=== PATIENT | female | born 1960 | race Caucasian/White ===

== ENCOUNTER → 2019-04-05 | Outpatient (CLI) | payer BC ==
--- NOTE | 2019-04-05 16:53 | PCVCIMAG ---
APPROVED REPORT Study performed: 04/05/2019 15:00:37 Exam: Stress Echocardiogram Indication: elevated coronary calcium score, pre-chemo, tobacco use Patient Location: Echo lab Stress Nurse: Dhara Russ RN Status: routine Ht: 5 ft 4 in HR: 85 bpm BP: 132/80 mmHg Rhythm: NSR Procedure The patient underwent an Exercise Stress Test using the Darnell Protocol. Blood pressure, heart rate, and EKG were monitored. An Echocardiogram was performed by audio visual technician in four stages in quad fashion. At peak stress, four selected images were obtained and placed side by side with resting images for comparison. Stress Test Details Stress Test: Exercise stress testing was performed using a Darnell protocol. HR Resting HR: 85 bpmMax Heart Rate (APMHR): 161 bpm Max HR Achieved: 151 bpmTarget HR (85% APMHR): 136 bpm % of APMHR: 93 Recovery HR: 92 bpm HR response to stress: Normal HR response to stress BP Resting BP: 132/80 mmHg Max BP: 156/76 mmHg Recovery BP: 124/76 mmHg BP response to stress: Normal blood pressure response to stress. ECG Resting ECG: Sinus Rhythm Stress ECG: Sinus Rhythm ST Change: Normal Maximum ST Deviation: 0 mm Arrhythmia: None Recovery ECG: Sinus Rhythm Recovery ST Change: Normal Recovery ST Deviation: 0 mm Recovery Arrhythmia: None Clinical Reason for Termination: Maximal effort, Dyspnea Stress Symptoms: Dyspnea Exercise duration: 6 min 41 sec Highest Stage Achieved: Stage 3: 3.4 mph at 14% grade. Exercise capacity: 9 METs Overall Exercise Capacity for Age: Average Scale: Sedentary Angina Score: None Stress ECG Conclusion Clinical: Non-ischemic ECG: Non-ischemic Anaya Treadmill Score is 6.0 which is Low risk. Pre-Stress Echo The resting Echocardiogram showed normal left ventricular contractility with an estimated Ejection Fraction of about 50-55%. Normal wall motion in all segments on baseline images. Post-Stress Echo The stress Echocardiogram showed abnormal left ventricular contractility with an estimated Ejection Fraction of about 45-50%. The stress Echocardiogram demonstrated wall motion abnormality in the globally . LV dilatation post exercise. Clinical No clinical or ECG evidence for ischemia. Conclusion Clinical Response: Equivocal Exercise Capacity: Average Stress ECG Response: Non-ischemic Stress Echo Images: Ischemic The left ventricle is normal in size at rest. Trace tricuspid regurgitation with pulmonary artery pressure Pulmonary artery pressure of 30 mmHg, no tricuspid stenosis. Abnormal stress echocardiogram with maximal exercise stress. High risk features with postexercise LV dilatation Coronary angiography recommended, scheduled Other Information Study Quality: Adequate <Conclusion> The left ventricle is normal in size at rest. Trace tricuspid regurgitation with pulmonary artery pressure Pulmonary artery pressure of 30 mmHg, no tricuspid stenosis. Abnormal stress echocardiogram with maximal exercise stress. High risk features with postexercise LV dilatation Coronary angiography recommended, scheduled
== END | disposition home or self-care (01) ==
LOC: PCVCIMAG 14:20
PROVIDERS: ATTEND Internal Medicine
DX: I25.10 Atherosclerotic heart disease of native coronary artery without angina pectoris (principal); I25.84 Coronary atherosclerosis due to calcified coronary lesion; R93.1 Abnormal findings on diagnostic imaging of heart and coronary circulation
CPT/HCPCS: 93325; 93351

== ENCOUNTER → 2019-04-11 | Outpatient (CLI) | payer BC ==
--- NOTE | 2019-04-11 14:26 | PCVCIMAG ---
EXAM: DUPLEX ULTRASOUND OF THE RIGHT GROIN INDICATION: Groin swelling and pain. Previous thrombin injection of pseudoaneurysm. FINDINGS: No pseudoaneurysm is present. The common femoral artery and vein are patent. No arteriovenous fistula is seen. IMPRESSION: Study is negative for pseudoaneurysm. Incidental note is made of an 1.5 x 2.8 x 5.7 cm subcutaneous hematoma right groin. LOC:[id number]
== END | disposition home or self-care (01) ==
LOC: PCVCIMAG 13:36
PROVIDERS: ATTEND Internal Medicine
DX: N94.89 Other specified conditions associated with female genital organs and menstrual cycle (principal); I97.89 Other postprocedural complications and disorders of the circulatory system, not elsewhere classified; I72.9 Aneurysm of unspecified site; Z87.891 Personal history of nicotine dependence
CPT/HCPCS: 93926

== ENCOUNTER → 2019-07-06 | Outpatient (CLI) | payer BC ==
--- NOTE | 2019-07-06 16:27 | PCVCIMAG ---
APPROVED REPORT Study performed: 07/06/2019 13:02:08 EXAM: Comprehensive 2D, Doppler, and color-flow Echocardiogram Patient Location: Echo lab Room #: [id number]: routine BSA: 1.94 HR: 69 bpm Rhythm: NSR Other Information Study Quality: Adequate Risk Factors: Cardiac Risk Factors: Smoking, Hyperlipidemia Indications CAD Chemo S/P stent LAD, 2D Dimensions IVSd: 11.23 (7-11mm)LVOT Diam: 22.08 (18-24mm) LVDd: 47.91 mm PWd: 8.75 (7-11mm)Ascending Ao: 32.65 (22-36mm) LVDs: 30.45 (25-40mm) Left Atrium: 36.01 (27-40mm) Aortic Root: 27.43 mm LV Single Plane 4CH: 66.06 % LV Single Plane 2CH: 70.48 % Biplane EF: 68.7 % Volumes Left Atrial Volume (Systole) Single Plane 4CH: 51.46 mLSingle Plane 2CH: 55.72 mL Biplane LA Volume: 55.00 mLLA ESV Index: 28.00 mL/m2 Aortic Valve AoV Peak Faisal.: 1.66 m/s AO Peak Gr.: 10.99 mmHgLVOT Max P.14 mmHg LVOT Max V: 1.02 m/s COTY Vmax: 2.35 cm2 Mitral Valve E/A Ratio: 1.0 MV Decel. Time: 185.02 ms MV E Max Faisal.: 0.82 m/s MV A Faisal.: 0.81 m/s MV PHT: 52.34 ms MVA (PHT): 4.20 cm2 IVRT: 76.12 ms TDI E/Lateral E': 7.45E/Medial E': 11.71 Medial E' Faisal.: 0.07 m/s Lateral E' Faisal.: 0.11 m/s Pulmonary Valve PV Peak Faisal.: 0.90 m/sPV Peak Gr.: 3.27 mmHg Pulmonary Vein P Vein S: 0.73 m/sP Vein A: 0.27 m/s P Vein D: 0.48 m/sP Vein A Dur.: 86.5 msec P Vein S/D Ratio: 1.52 Tricuspid Valve TR Peak Faisal.: 2.01 m/s TR Peak Gr.: 16.12 mmHg TV Vmax: 0.74 m/sPA Pressure: 23.00 mmHg Left Ventricle The left ventricle is normal size. There is normal LV segmental wall motion. Borderline septal hypertrophy. Left ventricular systolic function is normal. The left ventricular ejection fraction is within the normal range. LVEF is 65-70%. The left ventricular diastolic function is normal. Right Ventricle The right ventricle is normal size. The right ventricular systolic function is normal. Atria The left atrium size is normal. The right atrium size is normal. Aortic Valve Aortic valve is trileaflet. No aortic regurgitation is present. There is no aortic valvular stenosis. Mitral Valve The mitral valve is normal in structure. Trace mitral regurgitation. No evidence of mitral valve stenosis. Tricuspid Valve The tricuspid valve is normal in structure. Mild tricuspid regurgitation with a PA pressure of 23 mmHg. Pulmonic Valve The pulmonary valve is normal in structure. There is no pulmonic valvular regurgitation. Great Vessels The aortic root is normal in size. Aortic arch is not well visualized. The ascending aorta is normal in size. IVC is normal in size and collapses >50% with inspiration. Pericardium There is no pericardial effusion. There is no pleural effusion. <Conclusion> Left ventricular systolic function is normal. There is normal LV segmental wall motion. LVEF is 65-70%. Normal diastolic function Aortic valve is trileaflet. No aortic regurgitation or stenosis. The mitral valve is normal in structure. Trace mitral regurgitation. Mild tricuspid regurgitation with a pulmnary artery pressure of 23 mmHg. There is no pericardial effusion.
== END | disposition home or self-care (01) ==
LOC: PCVCIMAG 12:56
PROVIDERS: ATTEND Family Medicine
DX: I36.1 Nonrheumatic tricuspid (valve) insufficiency (principal); I25.10 Atherosclerotic heart disease of native coronary artery without angina pectoris; M06.9 Rheumatoid arthritis, unspecified; E78.5 Hyperlipidemia, unspecified; Z87.891 Personal history of nicotine dependence
CPT/HCPCS: 93306